=== PATIENT | female | born 2000 | race Caucasian/White ===

== ENCOUNTER 2020-12-19 13:33 | Emergency (ER) | payer OTHER, SELFPAY ==
[2020-12-19 13:39] VITALS: BP 132/75; PULSE 74; RESP 16; TEMP 36.7; O2SAT 100
--- NOTE | 2020-12-19 13:54 | ED.URI ---
HPI - URI/Sore Throat General Chief Complaint: Upper Respiratory Infection Stated Complaint: cough and nausea Time Seen by Provider: 12/19/20 13:54 Source: patient and RN notes reviewed History of Present Illness HPI Narrative: Patient is a 20-year-old female who presents the urgent care with complaints of cough since Wednesday. Patient states that she woke up this morning with a slight headache and nausea which is since subsided. Patient states that she has been taking Mucinex for the cough. States that she was around a 4-year-old child last week who had a viral infection . Patient currently denies any fever, nausea, vomiting, sore throat or headache. No other acute complaints. No acute distress noted. Patient aware of the plan of care. Some parts of this dictation were generated by voice recognition software and may contain typographical and/or grammatical inaccuracies. Related Data Home Medications Medication Instructions Recorded Confirmed No Home Medications 12/19/20 12/19/20 Allergies Allergy/AdvReac Type Severity Reaction Status Date / Time No Known Allergies Allergy Verified 12/19/20 13:44 Review of Systems Review of Systems: Narrative: CONSTITUTIONAL: Denies fever, chills, or sweats. EYES: Denies visual changes, redness, or discharge. ENT: Denies rhinorrhea, congestion, sore throat, or otalgia. CARDIOVASCULAR: Denies chest pain, palpitations, or edema. RESPIRATORY: Reports of cough without dyspnea GASTROINTESTINAL: Denies abdominal pain, nausea, vomiting, or diarrhea. GENITOURINARY: Denies dysuria or hematuria. SKIN: Denies rash or itching. MUSCULOSKELETAL: Denies back pain, joint pain, or myalgia. NEUROLOGIC: Denies headache, numbness, or weakness. All other systems reviewed are negative, except as documented in HPI. PMFSH Comments At the time of my signature, I reviewed and agree with the nursing past medical, surgical, social, and family history. There is no relevant family history pertinent to the patient complaint. Exam Narrative: Exam Narrative: GENERAL: This is a well-nourished, well-developed patient, in no apparent distress. HEAD: normocephalic, atraumatic. EYES: PERRL. Sclera clear/white. Vision is grossly intact. EARS: External ears normal, auditory canals clear and without drainage, TMs normal without perforation. Hearing grossly intact. NOSE: External nose normal with no obvious nasal discharge, nares without redness, no rhinorrhea. THROAT: Mucous membranes moist, mild erythema noted posterior oropharynx with mild postnasal drainage NECK: Neck supple, non-tender without lymphadenopathy, masses or thyromegaly. CARDIOVASCULAR: Regular rate and rhythm without murmurs, gallops, or rubs. RESPIRATORY: Clear to auscultation. Breath sounds equal bilaterally. No wheezes, rales, or rhonchi. GASTROINTESTINAL: Abdomen soft, non-tender, nondistended. SKIN: warm, intact with no suspicious lesions or rash, good texture and turgor. NEURO: awake, alert, and oriented to person, place and time. There were no obvious focal neurologic abnormalities. EXTREMITIES: No clubbing, cyanosis, or edema. Course Vital Signs Vital signs: Vital Signs Temperature 98.1 F 12/19/20 13:39 Pulse Rate 74 12/19/20 13:39 Respiratory Rate 16 12/19/20 13:39 Blood Pressure 132/75 12/19/20 13:39 Pulse Oximetry 100 12/19/20 13:39 Temperature 98.1 F 12/19/20 13:39 Pulse Rate 74 12/19/20 13:39 Respiratory Rate 16 12/19/20 13:39 Blood Pressure 132/75 12/19/20 13:39 Pulse Oximetry 100 12/19/20 13:39 Reviewed MDM - URI/Sore Throat MDM Narrative Medical decision making narrative: Advised the patient to continue taking her Mucinex as needed for cough. May incorporate an antihistamine such as Claritin or Zyrtec prior to bedtime. Do not sleep with a fan on or a window open. Use Tylenol/ibuprofen as needed. If symptoms exacerbate or worsen in any way associated with fever, persistent nausea, vomiting,
== END 2020-12-19 13:58 | disposition home or self-care (01) ==
PROVIDERS: Emergency Provider Nurse Practitioner Family; PCP Family Medicine
DX: R05 Cough (principal)
CPT/HCPCS: 99202; G0463

== ENCOUNTER 2021-03-05 19:03 | Emergency (ER) | payer OTHER, SELFPAY ==
--- NOTE | 2021-03-05 19:05 | ED.EAR ---
HPI - Ear Problem General Chief complaint: Ear Stated complaint: ear pain dizziness Time Seen by Provider: 03/05/21 19:06 Source: patient and RN notes reviewed History of Present Illness HPI Narrative: Patient is a 20-year-old female who presents the urgent care with complaints of left ear pain and mild dizziness. Patient states that the ear pain started yesterday and she has been using [id number] drying drops in the ear. Patient states that it started after she got out of the shower yesterday. States that the dizziness started approximately 1 hour ago. Denies of any fever, nausea, vomiting, other upper respiratory symptoms. No other acute complaints. No acute distress noted. Patient aware of the plan of care. Some parts of this dictation were generated by voice recognition software and may contain typographical and/or grammatical inaccuracies. Related Data Home Medications Medication Instructions Recorded Confirmed etonogestrel [Nexplanon] 68 mg SUBDERMAL 03/05/21 Allergies Allergy/AdvReac Type Severity Reaction Status Date / Time No Known Allergies Allergy Verified 12/19/20 13:44 Review of Systems Review of Systems: Narrative: CONSTITUTIONAL: Denies fever, chills, or sweats. EYES: Denies visual changes, redness, or discharge. ENT: Denies rhinorrhea, congestion, sore throat. Reports of left otalgia CARDIOVASCULAR: Denies chest pain, palpitations, or edema. RESPIRATORY: Denies cough or dyspnea. GASTROINTESTINAL: Denies abdominal pain, nausea, vomiting, or diarrhea. GENITOURINARY: Denies dysuria or hematuria. SKIN: Denies rash or itching. MUSCULOSKELETAL: Denies back pain, joint pain, or myalgia. NEUROLOGIC: Denies headache, numbness, or weakness. Reports of intermittent dizziness All other systems reviewed are negative, except as documented in HPI. PMFSH Comments At the time of my signature, I reviewed and agree with the nursing past medical, surgical, social, and family history. There is no relevant family history pertinent to the patient complaint. Exam Narrative: Exam Narrative: GENERAL: This is a well-nourished, well-developed patient, in no apparent distress. HEAD: normocephalic, atraumatic. EYES: PERRL. Sclera clear/white. Vision is grossly intact. EARS: External ears normal, auditory canals clear and without drainage, right TM normal without perforation. Unable to visualize left TM due to cerumen impaction. Hearing grossly intact. NOSE: External nose normal with no obvious nasal discharge, nares without redness, no rhinorrhea. THROAT: Mucous membranes moist NECK: Neck supple CARDIOVASCULAR: Regular rate and rhythm without murmurs, gallops, or rubs. RESPIRATORY: Clear to auscultation. Breath sounds equal bilaterally. No wheezes, rales, or rhonchi. SKIN: warm, intact with no suspicious lesions or rash, good texture and turgor. NEURO: awake, alert, and oriented to person, place and time. There were no obvious focal neurologic abnormalities. EXTREMITIES: No clubbing, cyanosis, or edema. Course Vital Signs Vital signs: Vital Signs Temperature 98.6 F 03/05/21 19:08 Pulse Rate 65 03/05/21 19:08 Respiratory Rate 20 03/05/21 19:08 Blood Pressure 130/66 03/05/21 19:08 Pulse Oximetry 99 03/05/21 19:08 Temperature 98.6 F 03/05/21 19:08 Pulse Rate 65 03/05/21 19:08 Respiratory Rate 20 03/05/21 19:08 Blood Pressure 130/66 03/05/21 19:08 Pulse Oximetry 99 03/05/21 19:08 Reviewed Procedures Ear Wax Removal Left Ear: Cerumenolytic Used: other (50-50 peroxide and warm water) Results: Re-examined: cerumen removed completely TM Examination: TM(s) intact, normal appearance Patient Tolerated Procedure: well Complications: no problems Additional Comments: Left ear irrigated, cerumen completely removed. TM within normal limits. Patient states that symptoms have improved immediately. Tolerated well. No problems. Medical Decisio
[2021-03-05 19:08] VITALS: BP 130/66; PULSE 65; RESP 20; TEMP 37; O2SAT 99
[2021-03-05 19:15] VITALS: BP 130/66; PULSE 65; RESP 20; TEMP 37; O2SAT 99
== END 2021-03-05 19:20 | disposition home or self-care (01) ==
PROVIDERS: Emergency Provider Nurse Practitioner Family; PCP Family Medicine
DX: H61.22 Impacted cerumen, left ear (principal)
CPT/HCPCS: 69209; 99212; G0463

== ENCOUNTER 2022-11-29 14:53 | Emergency (ER) | payer OTHER, SELFPAY ==
[2022-11-29 15:00] VITALS: BP 137/75; PULSE 77; RESP 16; TEMP 37.4; O2SAT 100
--- NOTE | 2022-11-29 15:33 | ED.GENADULT ---
HPI - General Adult General Chief complaint: Upper Respiratory Infection Stated complaint: cough/runny nose Source: patient Mode of arrival: ambulatory Limitations: no limitations History of Present Illness HPI narrative: Patient presents for evaluation of sick symptoms for last 3 days. Symptoms include subjective fever, rhinorrhea, reports voices, nonproductive cough. No nausea, vomiting, diarrhea, shortness of breath. No recent sick contacts to her knowledge. She does not smoke cigarettes past does smoke marijuana. She tried taking some ctop-flo-tlolalm medication which sounds to be mucinex from her description. Medication did assist with sputum production but did not assist with her cough. Related Data Home Medications Medication Instructions Recorded Confirmed etonogestrel 68 mg subdermal 68 mg subdermal [id number] 03/05/21 11/29/22 implant (Nexplanon) Allergies Allergy/AdvReac Type Severity Reaction Status Date / Time No Known Allergies Allergy Verified 11/29/22 15:06 Review of Systems Review of Systems: CONSTITUTIONAL: Reports subjective fever. Denies chills, or sweats. EYES: Denies visual changes, redness, or discharge. ENT: Reports rhinorrhea and hoarse voice. Denies sore throat or otalgia CARDIOVASCULAR: Denies chest pain, palpitations, or edema. RESPIRATORY: Reports cough. Denies shortness of breath. GASTROINTESTINAL: Denies abdominal pain, nausea, vomiting, or diarrhea. GENITOURINARY: Denies dysuria or hematuria. SKIN: Denies rash or itching. MUSCULOSKELETAL: Denies back pain, joint pain, or myalgia. NEUROLOGIC: Denies headache, numbness, dizziness, or weakness. PSYCHIATRIC: Denies anxiety or depression. [facility] Past Medical History Medical History (Updated 11/29/22 @ 16:34 by SANDER Castellano, ) No pertinent past medical history Surgical History Surgical History No pertinent past surgical history Family History Family History Mother Family history non-contributory Social History Social History (Updated 11/29/22 @ 15:36 by SANDER Castellano, LESIA) Smoking status: Never smoker Substance use: current Substance use type: marijuana Additional living arrangements comments: lives with male partner Gender identity (if verbalized by the patient): Female Spiritual care concerns: No Exam Narrative: GENERAL: Well-appearing, well-nourished, and in no acute distress. HEAD: Normocephalic, atraumatic. EYES: PERRLA and EOMI. ENT: Nares clear, no rhinorrhea or epistaxis. Mucous membranes moist. Posterior pharyngeal erythema without exudate. Uvula is midline. Bilateral TMs pearly dumont nonbulging NECK: Supple. No adenopathy or masses. No carotid bruits or JVD CHEST: Clear to auscultation. No respiratory distress. No wheezes rales or rhonchi HEART: Regular rate and rhythm. No murmur heard. Normal peripheral pulses. ABDOMEN: Soft, nontender, nondistended, normal active bowel sounds. EXTREMITIES: Normal range of motion. No edema. SKIN: Warm, dry, no rash. NEURO: No focal deficits. Alert and oriented x3. PSYCH: Normal mood and affect. Course Course Emergency Course: This is a 22-year-old female who presented for evaluation of sick symptoms. COVID and influenza were negative. Exam consistent with acute viral syndrome. Recommend Mucinex DM [id number]. Increase hydration. Follow up with primary provider. Go to the ER for worsening symptoms. Patient in agreement with plan of care Level of Care: Express Care Visit Vital Signs Vital signs: Vital Signs Temperature 37.4 C 11/29/22 15:00 Pulse Rate 77 11/29/22 15:00 Respiratory Rate 16 11/29/22 15:00 Blood Pressure 137/75 11/29/22 15:00 Pulse Oximetry 100 11/29/22 15:00 Oxygen Delivery Room Air 11/29/22 15:00 Temperature 37.4 C 11/29/22 15:00 Pulse Rate 77 04/0
== END 2022-11-29 16:42 | disposition home or self-care (01) ==
PROVIDERS: Emergency Provider Nurse Practitioner; PCP Family Medicine
DX: J06.9 Acute upper respiratory infection, unspecified (principal); B97.89 Other viral agents as the cause of diseases classified elsewhere; Z20.822 Contact with and (suspected) exposure to COVID-19
CPT/HCPCS: 87426; 87804; 99212; C9803; G0463

== ENCOUNTER 2023-04-13 20:09 | Emergency (ER) | payer OTHER, SELFPAY ==
[2023-04-13 20:52] VITALS: BP 129/76; PULSE 62; RESP 15; TEMP 37.1; O2SAT 100
[2023-04-13 21:04] LABS: Basophils Percent Auto 0.4 % (0.2-1.2); Eosinophils Absolute Auto 0.1 K/mm3 (0-0.3); Eosinophils Percent Auto 1.3 % (0-4.4); Hematocrit 40.9 % (37.0-47.0); Hemoglobin 13.6 g/dL (12.0-15.0); Immature Granulocyte Absolute 0.03 K/mm3 (0.00-0.031); Immature Granulocyte Percent A 0.3 % (0-0.5); Lymphocytes Absolute Auto 2.06 K/mm3 (0.9-3.2); Lymphocytes Percent Auto 19.2 % (18.3-44.2); Mean Corpuscular HGB Conc 33.3 g/dl (32-36); Mean Corpuscular Hemoglobin 31.6 pg (26-34); Mean Corpuscular Volume 95.1 fl (80-100); Mean Platelet Volume 9.8 fl (7.4-10.4); Monocytes Absolute Auto 0.8 K/mm3 (0.1-0.6); Monocytes Percent Auto 7.2 % (2.6-8.5); Neutrophils Absolute Auto 7.7 K/mm3 (1.3-6.7); Neutrophils Percent Auto 71.6 % (45.5-73.1); Platelet Count Result 282 k/mm3 (150-375); Red Cell Distribution Width 12.1 % (11.5-14.5); White Blood Count 10.7 K/mm3 (4.5-10.0)
[2023-04-13 21:14] LABS: Alanine Aminotransferase 18 U/L (6-35); Alkaline Phosphatase 80 U/L (38-126); Anion Gap 6 mmol/L (8-16); Aspartate Amino Transferase 20 U/L (14-36); Bilirubin,Total 0.5 mg/dL (0.2-1.3); Blood Urea Nitrogen 14 mg/dL (7-17); Carbon Dioxide 23 mmol/L (22-30); Chloride 106 mmol/L (98-107); Estimated CRCL calculation 98 ml/min; Estimated Glomerular Filt Rate > 60; Glucose 116 mg/dL (65-110); Potassium 3.8 mmol/L (3.4-5.0); Sodium 135 mmol/L (137-145)
== END 2023-04-14 00:54 | disposition left against medical advice (07) ==
PROVIDERS: Emergency Provider Emergency Medicine; PCP Family Medicine
DX: R11.2 Nausea with vomiting, unspecified (principal)
CPT/HCPCS: 36415; 80053; 85025; 99199

== ENCOUNTER 2024-07-18 17:35 | Emergency (ER) | payer OTHER, SELFPAY ==
--- NOTE | ~2024-07-18 | XR_ITS ---
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 RESULT: Lines, tubes, and devices: None. Lungs and pleura: Segmental airspace disease in the peripheral aspect of the lingula, with volume lo ss. Cardiomediastinal silhouette: Stable. Other: No acute osseous or upper abdominal finding. IMPRESSION: Lingular atelectasis versus pneumonia. Reviewed, dictated and finalized at location [facility]. RO[employer] DES[employer] CONSULTANT
[2024-07-18 17:42] VITALS: BP 140/87; PULSE 87; RESP 20; TEMP 37; O2SAT 98
--- NOTE | 2024-07-18 18:14 | ED_ITS ---
HPI - URI/Sore Throat General Chief Complaint: Upper Respiratory Infection Stated Complaint: Cough Time Seen by Provider: 07/18/24 18:15 Source: patient, RN notes reviewed and old records reviewed Mode of arrival: ambulatory Limitations: no limitations History of Present Illness HPI Narrative: 23-year-old female to Express Care with complaint of nonproductive cough for 1 week. Patient denies sore throat, fever, shortness of breath, ear pain, allergies, pertinent medical history. Patient able to tolerate fluids by mouth. Patient resting comfortably in [facility] in no acute distress, appears tired. Respirations even and nonlabored. Patient able to speak in complete sentences without difficulty. Related Data Home Medications Medication Instructions Recorded Confirmed etonogestrel 68 mg subdermal 68 mg subdermal [id number] 03/05/21 11/29/22 implant (Nexplanon) Allergies Allergy/AdvReac Type Severity Reaction Status Date / Time No Known Allergies Allergy Verified 04/13/23 20:11 Review of Systems Review of Systems: All systems reviewed & are unremarkable except as noted in HPI and below Constitutional: Constitutional: Reports no additional constitutional complai nts Eyes: Eyes: Reports no additional eye complaints ENT: Reports system reviewed and no additional complaints, except as documented Cardiovascular: Cardiovascular: Reports no additional cardiovascular complaints, Denies chest pain and Denies dyspnea Respiratory: Respiratory: Reports no additional respiratory complaints, Denies cough and Denies dyspnea Musculoskeletal: Musculoskeletal: Reports no additional musculoskeletal complaints Neurologic: Reports system reviewed and no additional complaints, except as documented Psychiatric: Psychiatric: Reports no additional psychiatric complaints [facility] Past Medical History Medical History (Updated 07/19/24 @ 00:02 by Laura Heredia) No pertinent past medical history Surgical History Surgical History No pertinent past surgical history Family History Family History Mother Family history non-contributory Social History Social History (Updated 11/29/22 @ 15:36 by SANDER Castellano, BC) Smoking status: Never smoker Substance use: current Substance use type: marijuana Additional living arrangements comments: lives with male partner Gender identity (if verbalized by the patient): Female Spiritual care concerns: No Comments At the time of my signature, I reviewed and agree with the nursing past medical, surgical, social, and family history. There is no relevant family history pertinent to the patient complaint. Exam Const: General: cooperative, healthy appearing, comfortable, no acute distress, alert and well nourished Nutritional Appearance: well nourished Orientation/consciousness: patient oriented x3 Limitations: no limitations HENMT: Head: normal to inspection Ears: external ears normal Face/Nose/Sinus: Normal external nose present, Normal nares present, normal facial exam, No erythema and No edema Face and sinus: normal facial exam, no erythema and no edema Mouth: Yes Normal oral and palatal mucosa present Eyes: General: appearance normal, both eyes and all related structures Neck: Neck: normal visual inspection, full ROM and no meningeal signs Lymphatic: no lymphadenopathy noted and no lymphedema noted Chest: Chest palpation & inspection: normal inspection of the chest Resp: Effort & Inspection: normal respiratory effort and able to speak in complete sentences Auscultation: clear to auscultation bilaterally Cardio: Jugular venous distension: no JVD Rate: regular rate Rhythm: regular rhythm Back/Spine/Pelvis: Cervical Spine: cervical ROM normal Skin: General skin exam: normal color, no rashes or lesions noted and turgor normal Neuro: General: patient oriented x3, gait normal, moves all extremities and no meningeal signs Speech: normal speech Gait exam (Neuro): Normal gait present Extrem: General: normal to inspection, full ROM and capillary refill normal Psych: Appearance: grossly normal and well kempt Course Course Emergency Course: Some parts of this dictation were generated by voice recognition software and may contain typographical and/or grammatical inaccuracies. Level of Care: Express Care Visit Vital Signs Vital signs: Vital Signs Temperature 37.0 C 07/18/24 17:42 Pulse Rate 87 07/18/24 17:42 Respiratory Rate 20 07/18/24 17:42 Blood Pressure 140/87 07/18/24 17:42 Pulse Oximetry 98 07/18/24 17:42 Oxygen Delivery Room Air 07/18/24 17:42 Temperature 37.0 C 07/18/24 17:42 Pulse Rate 87 07/18/24 17:42 Respiratory Rate 20 07/18/24 17:42 Blood Pressure 140/87 07/18/24 17:42 Pulse Oximetry 98 07/18/24 17:42 Oxygen Delivery Room Air 07/18/24 17:42 reviewed MDM - URI/Sore Throat MDM Narrative Medical decision making narrative: 23-year-old female to Express Care with complaint of nonproductive cough for 1 week. Patient denies sore throat, fever, shortness of breath, ear pain, allergies, pertinent medical history. Patient able to tolerate fluids by mouth. Patient resting comfortably in [facility] in no acute distress, appears tired. Respirations even and nonlabored. Patient able to speak in complete sentences without difficulty. On exam, lung sounds decreased bilaterally. Radiology impression: Lingular atelectasis versus pneumonia. Patient is sitting comfortably in exam room nontoxic in appearance. Patient appropriate for outpatient treatment and follow-up. Discharge instructions reviewed with patient, as well as provided in writing per nursing staff. The instructions also include specific and strict return/GO TO THE ER as well as f/u information. All questions have been answered, and the patient deny any further questions with discharge and discharge plan. Some parts of this dictation were generated by voice recognition software and may contain typographical and/or grammatical inaccuracies. 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 RESULT: Lines, tubes, and devices: None. Lungs and pleura: Segmental airspace disease in the peripheral aspect of the lingula, with volume loss. Cardiomediastinal silhouette: Stable. Other: No acute osseous or upper abdominal finding. IMPRESSION: Lingular atelectasis versus pneumonia. Discharge Plan Discharge Clinical Impression: Pneumonia Patient Disposition: Home, Self-Care Condition: Stable Instructions: Pneumonia (ED) Additional Instructions: please review attached instructions regarding pneumonia and follow suggestions as tolerated please finish entire course of antibiotic treatment for new or worsening symptoms go directly to the emergency department Prescriptions: New azithromycin 250 mg tablet 250 mg PO DAILY Qty: 6 0RF Rx Instructions: 250 mg orally. Take TWO tablets today, then one tablet daily for 4 days. amoxicillin-pot clavulanate 875-125 mg tablet 1 tablet PO Q12H Qty: 20 0RF No Action Nexplanon 68 mg Implant 68 mg SUBDERMAL [id number] Follow-up/Referrals: UNKNOWN,DOCTOR [Primary Care Provider] -
== END 2024-07-18 19:12 | disposition home or self-care (01) ==
PROVIDERS: Emergency Provider Nurse Practitioner Family
DX: J18.9 Pneumonia, unspecified organism (principal); F12.90 Cannabis use, unspecified, uncomplicated
CPT/HCPCS: 71046; 99213; G0463